=== PATIENT | female | born 1955 | race African-American/Black ===

== ENCOUNTER 2018-12-30 18:28 | Emergency (ER) | payer MEDICARE ==
[~2018-12-30] VITALS: Ht 162.6 cm; Wt 45.0 kg
[2018-12-30] MEDS ORDERED: SODIUM CHLORIDE 0.9% 1,000 ML IV ONE ×2 (19:37→20:30)
[2018-12-30 19:53] LABS: CHLORIDE 86 mEq/L (98-107)
[2018-12-30 19:57] LABS: BASOPHILS % 1.2 % (0.0-2.0); EOSINOPHILS % 0.6 % (0.0-5.0); HEMOGLOBIN. 11.1 g/dL (12.0-16.0); LYMPHOCYTES % 15.9 % (20.0-50.0); MEAN CORPUSCULAR HEMOGLOBIN 26.2 pg (28.0-32.0); MEAN CORPUSCULAR VOLUME 80.4 fL (81.0-99.0); MONOCYTES % 13.1 % (2.0-8.0); NEUTROPHILS % 69.2 % (40.0-76.0); PLATELET 209 x1000/uL (130-400); RED BLOOD CELL COUNT 4.23 mill/uL (4.2-5.4); RED CELL DISTRIBUTION WIDTH 23.2 % (11.6-14.6)
[2018-12-30] MEDS ORDERED: KCL 20MEQ/100ML PREMIX 100 ML IV ONE (20:30)
[2018-12-30] MEDS ORDERED: POTASSIUM CHLORIDE 20MEQ TABLET SR PO ONE (20:30)
[2018-12-30 20:40] LABS: PLATELET ESTIMATE NORMAL
[2018-12-30] MEDS ORDERED: ACETAMINOPHEN 325MG TABLET PO ONE (21:00)
[2018-12-31 00:48] VITALS: BP 100/58
== END 2018-12-31 01:14 | disposition short-term general hospital (02) ==
LOC: ER 18:28 → CANBEDREQ 12-31 03:08
DX: E86.0 Dehydration (principal); E87.6 Hypokalemia; E87.1 Hypo-osmolality and hyponatremia; I48.91 Unspecified atrial fibrillation; Z95.0 Presence of cardiac pacemaker
CPT/HCPCS: 36415; 71045; 80053; 85025; 93005; 96360; 99291; J3480; J7030